=== PATIENT | female | born 1995 | race African-American/Black ===

== ENCOUNTER 2020-02-16 13:49 | Emergency (ER) | payer SELFPAY ==
[~2020-02-16] VITALS: Ht 162.6 cm; Wt 91.0 kg
[2020-02-16 13:52] VITALS: BP 143/82
== END 2020-02-16 15:45 | disposition left against medical advice (07) ==
LOC: ER 13:49
DX: Z53.21 Procedure and treatment not carried out due to patient leaving prior to being seen by health care provider (principal)